=== PATIENT | female | born 1995 | race Caucasian/White ===

== ENCOUNTER 2018-05-02 06:00 | Inpatient (IN) | payer BC ==
--- NOTE | 2018-05-01 16:40 | P.HPOB ---
History of Present Illness H&P Date: 05/01/18 Chief Complaint: Induction of labor This is a 23-year-old female 2 para 1 with an estimated date of confinement of 05/09/2018, estimated gestational age of 39-0/7 weeks, who presents to labor and delivery for induction of labor. She admits to good movement and has been feeling irregular contractions. She also complains of pelvic pressure and back pain. Her has been essentially uncomplicated. labs: GC/chlamydia-negative Rubella-immune Toxoplasma-negative RPR-nonreactive Hepatitis B surface antigen-negative Random glucose-96 Blood type-A+ Antibody screen-negative Hemoglobin-15.1 One hour Glucola-101 Group B streptococcus-negative Obstetrical history: . One vaginal delivery. Gynecologic history: No history of sexual transmitted diseases. Social history: She is . 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 [employer] Review of Systems Constitutional: Denies chills, Denies fever Eyes: denies blurred vision, denies pain Cardiovascular: Denies chest pain, Denies shortness of breath Gastrointestinal: Reports abdominal pain (Irregular contractions) Genitourinary: Reports pelvic pain, Reports Musculoskeletal: Reports low back pain Integumentary: Denies pruritus, Denies rash Neurological: Denies numbness, Denies weakness Psychiatric: Denies anxiety, Denies depression Past Medical History Additional Past Medical History / Comment(s): Interstitial cystitis History of Any Multi-Drug Resistant Organisms: None Reported Past Surgical History: Orthopedic Surgery Past Psychological History: No Psychological Hx Reported Smoking Status: Never smoker Past Alcohol Use History: None Reported Past Drug Use History: None Reported - Past Family History Father Family Medical History: No Reported History Medications and Allergies Home Medications Medication Instructions Recorded Confirmed Type 78/Iron/Folate 1/Dha 1 cap PO DAILY 07/20/14 09/23/14 History [Prenate Dha Softgel] Allergies Allergy/AdvReac Type Severity Reaction Status Date / Time No Known Allergies Allergy Verified 09/23/14 22:39 Exam Osteopathic Statement: *. No significant issues noted on an osteopathic structural exam other than those noted in the History and Physical/Consult. HEENT: Within normal limits Heart: Regular rate and rhythm Lungs: Clear to auscultation bilaterally Abdomen: Soft, nontender Pelvic exam: Cervix one centimeters/60%/-3 heart tones: 170s by Doppler Extremities: Negative Homans Assessment and Plan (1) 39 weeks gestation of Status: Acute Code(s): Z3A.39 - 39 WEEKS GESTATION OF SNOMED Code( s): 63702225 Plan: Proceed with oxytocin induction of labor. Expectant management. Epidural anesthesia if desired.
[2018-05-02] MEDS ORDERED: CARBOPROST TROMETHAMINE 250 MCG/ML 1 ML AMP IM PRN (06:37)
[2018-05-02] MEDS ORDERED: OXYTOCIN 20 UNITS/1000 ML NS 1,000 ML IV SCH ×2 (06:37→15:45)
[2018-05-02] MEDS ORDERED: OXYTOCIN 10 UNIT/ML 1 ML VIAL IM PRN (06:37)
[2018-05-02] MEDS ORDERED: TERBUTALINE 1 MG/ML VIAL SQ PRN (06:37)
[2018-05-02] MEDS ORDERED: LIDOCAINE 1% 20 ML VIAL (10MG/ML) FOR IV START INTRADERMA PRN (06:37)
[2018-05-02] MEDS ORDERED: METHYLERGONOVINE 0.2 MG/ML 1 ML AMP IM PRN (06:37)
[2018-05-02] MEDS ORDERED: LIDOCAINE 0.5% (PF) 5 MG/ML (50 ML SDV) SQ PRN (06:37)
[2018-05-02 06:51] VITALS: BMI 34.2
[2018-05-02] MEDS: LACTATED RINGERS 1,000 ML IV SCH ×2 (06:59→20:36)
[2018-05-02 07:30] LABS: Basophils % (A) 0 %; Eosinophils # (A) 0.1 k/uL (0-0.7); Eosinophils % (A) 1 %; HCT 36.6 % (34.0-46.0); HGB 12.3 gm/dL (11.4-16.0); Lymphocytes # (A) 1.7 k/uL (1.0-4.8); Lymphocytes % (A) 16 %; MCH 31.1 pg (25.0-35.0); MCHC 33.5 g/dL (31.0-37.0); MCV 92.9 fL (80.0-100.0); Mean Platelet Volume 6.9; Monocytes # (A) 0.5 k/uL (0-1.0); Monocytes % (A) 5 %; Neutrophils # (A) 7.9 k/uL (1.3-7.7); Neutrophils % (A) 76 %; Platelet Count 253 k/uL (150-450); RBC 3.94 m/uL (3.80-5.40); WBC 10.3 k/uL (3.8-10.6)
[2018-05-02] MEDS ORDERED: BUTORPHANOL 1 MG/ML 1 ML VIAL IV PRN (10:25)
[2018-05-02] MEDS ORDERED: SODIUM CHLORIDE 0.9% 100 ML BAG ONE (12:26)
[2018-05-02] MEDS ORDERED: fentaNYL (PF) 50 MCG/ML 5 ML AMP ONE (12:26)
[2018-05-02] MEDS ORDERED: ROPIVACAINE 5MG/ML 20ML VIAL ONE (12:26)
[2018-05-02] MEDS ORDERED: SIMETHICONE 80 MG CHEWABLE PO PRN (15:45)
[2018-05-02] MEDS ORDERED: LANOLIN CREAM 5 GM TUBE TOPICAL PRN (15:45)
[2018-05-02] MEDS ORDERED: diphenhydrAMINE 50 MG CAP PO PRN (15:45)
[2018-05-02] MEDS ORDERED: ZOLPIDEM 5 MG TAB PO PRN (15:45)
[2018-05-02] MEDS ORDERED: ACETAMINOPHEN TAB 325 MG TAB PO PRN (15:45)
[2018-05-02] MEDS ORDERED: diphenhydrAMINE 25 MG CAP PO PRN (15:45)
[2018-05-02] MEDS ORDERED: HYDROCORTISONE 2.5% RECTAL CREAM 30 GM TUBE RECTAL PRN (15:45)
[2018-05-02] MEDS ORDERED: diphenhydrAMINE 50 MG/ML 1 ML VIAL IVP PRN ×2 (15:45)
[2018-05-02] MEDS ORDERED: BENZOCAINE/MENTHOL SPRAY 1 GM/SPRAY AEROSOL TOPICAL PRN (15:45)
[2018-05-02] MEDS ORDERED: WITCH HAZEL 1 EACH MED..PAD TOPICAL PRN (15:45)
[2018-05-02] MEDS: IBUPROFEN 600 MG TAB PO PRN ×2 (16:22→23:38)
--- NOTE | 2018-05-02 17:12 | P.PROBDLV ---
Vaginal Delivery Note - . Vaginal Delivery Note: The patient progressed to complete dilation after oxytocin induction of labor and artificial rupture of membranes with clear fluid noted. She did receive epidural anesthesia. Once reaching complete, she began pushing. Infant's head came to a crown. With one further push, the infant's head delivered across the perineum followed by the anterior shoulder. Nose and mouth were bulb suctioned. With one further push the remainder the was easily delivered reducing nuchal cord times one around the body with delivery. Infant was placed on mother's abdomen. Cord was clamped and cut and was taken to warmer for evaluation. A viable male infant was noted with scores of 9 at 1 minute and 9 at 5 minutes and infant weight of 7 lbs. 5 oz. Her placenta delivered shortly thereafter, intact, with a three-vessel cord. Uterus contracted fairly well after oxytocin was given and uterine massage was carried out. A gloved hand was also placed within the uterus and no further tissue was obtained. Her bladder was also drained which did help the uterus contract. Estimated blood loss is approximately 300 mL's. Both mother and are in stable condition.
[2018-05-02] MEDS: SENNOSIDES-DOCUSATE SODIUM 1 EACH TAB PO SCH (20:36)
[2018-05-03] MEDS: IBUPROFEN 600 MG TAB PO PRN ×2 (08:06→11:47)
[2018-05-03] MEDS: SENNOSIDES-DOCUSATE SODIUM 1 EACH TAB PO SCH (08:07)
[2018-05-03 08:40] LABS: Basophils % (A) 0 %; Eosinophils # (A) 0.1 k/uL (0-0.7); Eosinophils % (A) 0 %; HCT 25.7 % (34.0-46.0); Lymphocytes # (A) 1.6 k/uL (1.0-4.8); Lymphocytes % (A) 11 %; MCH 32.3 pg (25.0-35.0); MCHC 34.4 g/dL (31.0-37.0); MCV 93.7 fL (80.0-100.0); Mean Platelet Volume 6.8; Monocytes # (A) 0.8 k/uL (0-1.0); Monocytes % (A) 5 %; Neutrophils # (A) 12.7 k/uL (1.3-7.7); Neutrophils % (A) 83 %; Platelet Count 237 k/uL (150-450); RBC 2.75 m/uL (3.80-5.40); RDW 14.3 % (11.5-15.5); WBC 15.4 k/uL (3.8-10.6)
[2018-05-03 08:42] LABS: HGB 8.9 gm/dL (11.4-16.0)
--- NOTE | 2018-05-03 09:38 | P.DS ---
Providers Date of admission: 05/02/18 06:17 Expected date of discharge: 05/03/18 Attending physician: Katiana Cowart Primary care physician: Stated None - Discharge Diagnosis(es) (1) 39 weeks gestation of Current Visit: No Status: Acute Hospital Course: This is a 23-year-old female 2 para 1 at 39-0/7 weeks who presented for induction of labor. She underwent oxytocin induction of labor and delivered vaginally a viable male on 05/02/2018 with scores of 9 at 1 minute and 9 at 5 minutes and infant weight of 7 lbs. 5 oz. Her course has been uncomplicated. She did pass a few clots shortly after delivery but this has slowed today. She was also dizzy a couple times after delivery but this has resolved this morning also. She would like to go home. Her pain is well- controlled with ibuprofen and Tylenol. She is breast-feeding. Vital signs are stable. Abdomen is soft with fundus firm and nontender. Extremities show negative Homans. Impression is status post vaginal delivery day #1. Plan is to discharge home today. Routine instructions are given. She will be given a prescription for ibuprofen. She states she has a breast pump at home. She is instructed to follow-up in the office in 6 weeks for a check. She is instructed to call the office if she has any further questions or concerns prior to her appointment time. Procedures: Oxytocin induction of labor Spontaneous vaginal delivery of a viable male infant on 05/02/2018 Patient Condition at Discharge: Stable Plan - Discharge Summary New Discharge Prescriptions: New Ibuprofen [Motrin] 600 mg PO Q6HR PRN #60 tab PRN Reason: Mild Pain Or Fever >= 100.5 No Action 78/Iron/Folate 1/Dha [Prenate Dha Softgel] 1 cap PO DAILY Discharge Medication List 78/Iron/Folate 1/Dha [Prenate Dha Softgel] 1 cap PO DAILY 07/20/14 [ History] Ibuprofen [Motrin] 600 mg PO Q6HR PRN #60 tab 05/03/18 [Rx] Follow up Appointment(s)/Referral(s): Katiana Cowart DO [Doctor of Osteopathic Medicine] - 6 Weeks Activity/Diet/Wound Care/Special Instructions: Instructions 1. Do not begin any exercise program for 3 weeks. 2. Do not resume sexual relations for 3 weeks or longer if uncomfortable. 3. You may take tub baths or showers at any time. 4. You may use tampons if desired after 3 weeks. 5. Keep the area of episiotomy (stitches) clean and dry. 6. If you are not nursing, wear a good fitting, supportive bra during the day and limit fluid intake for at least 1 week to prevent breast engorgement. 7. Call the office, [phone], within the next week to make appointment for your 6 week checkup if it has not already been made. 8. Report any of the following occurrences to the doctor promptly: a. Heavy, excessive bleeding b. Chills, fever c. Burning or frequency of urination d. Pain or redness and breasts if nursing e. Increasing pain or swelling in episiotomy (stitches). In addition to the above instructions, the following additional should be followed: 1. No heavy lifting or straining (exercising) until after 6 week checkup. 2. Keep abdominal incision clean and dry: You may wear a dressing if more comfortable. 3. Make office appointment for 10 days after going home or as instructed by her doctor. Discharge Disposition: HOME SELF-CARE
[2018-05-03] MEDS ORDERED: PRENATAL VIT-IRON-FOLIC ACID 1 EACH CAP PO SCH (12:00)
[2018-05-03 18:48] VITALS: BP 120/64; PULSE 89; RESP 16; TEMP 98.3
== END 2018-05-03 18:30 | disposition home or self-care (01) | DRG 807 ==
LOC: 4FBP 06:17
PROVIDERS: ADMIT Obstetrics & Gynecology; ATTEND Obstetrics & Gynecology
PROC: 10E0XZZ Delivery of Products of Conception, External Approach (ICD-10-PCS; principal; 2018-05-02)
PROC: 3E033VJ Introduction of Other Hormone into Peripheral Vein, Percutaneous Approach (ICD-10-PCS; principal; 2018-05-02)
PROC: 10907ZC Drainage of Amniotic Fluid, Therapeutic from Products of Conception, Via Natural or Artificial Opening (ICD-10-PCS; principal; 2018-05-02)
PROC: 3E0R3NZ Introduction of Analgesics, Hypnotics, Sedatives into Spinal Canal, Percutaneous Approach (ICD-10-PCS; principal; 2018-05-02)
PROC: 00HU33Z Insertion of Infusion Device into Spinal Canal, Percutaneous Approach (ICD-10-PCS; principal; 2018-05-02)
DX: O69.81X0 Labor and delivery complicated by cord around neck, without compression, not applicable or unspecified (principal); Z37.0 Single live birth; Z3A.39 39 weeks gestation of pregnancy
CPT/HCPCS: 85025; 86850; 86900; 86901

== ENCOUNTER 2020-10-17 06:19 | Day surgery (SDC) | payer BC ==
[2020-10-15 15:41] VITALS: BMI 32.2
--- NOTE | 2020-10-16 19:34 | P.HPOB ---
History of Present Illness H&P Date: 10/16/20 Chief Complaint: Family planning This is a 25 y.o. female 2, para 2, who presents for laparoscopic bilateral tubal ligation via fulgaration along with removal of Nexplanon implant. She complains of mood swings on the Nexplanon and wants permanent sterilization. OB Hx: . History of 2 vaginal deliveries. Ehs Engineer Hx: No history of STDs. 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 Review of Systems Constitutional: Denies chills, Denies fever Eyes: denies blurred vision, denies pain Ears, nose, mouth and throat: Denies headache, Denies sore throat Cardiovascular: Denies chest pain, Denies shortness of breath Respiratory: Denies cough Gastrointestinal: Denies abdominal pain, Denies diarrhea, Denies nausea, Denies vomiting Genitourinary: Denies dysuria, Denies hematuria Menstruation: Reports menses variable Musculoskeletal: Denies myalgias Integumentary: Denies pruritus, Denies rash Neurological: Denies numbness, Denies weakness Psychiatric: Reports anxiety, Reports depression, Reports irritability, Reports mood swings Past Medical History Additional Past Medical History / Comment(s): Interstitial cystitis History of Any Multi-Drug Resistant Organisms: None Reported Past Surgical History: Bladder Surgery, Orthopedic Surgery Additional Past Surgical History / Comment(s): SX TO both ankles Past Anesthesia/Blood Transfusion Reactions: No Reported Reaction Past Psychological History: No Psychological Hx Reported Smoking Status: Former smoker Past Alcohol Use History: Occasional Past Drug Use History: None Reported - Past Family History Father Family Medical History: No Reported History Medications and Allergies Home Medications Medication Instructions Recorded Confirmed Type FLUoxetine HCL [PROzac] 20 mg PO DAILY 10/16/20 10/17/20 History Allergies Allergy/AdvReac Type Severity Reaction Status Date / Time No Known Allergies Allergy Verified 10/17/20 07:13 Exam Osteopathic Statement: *. No significant issues noted on an osteopathic structural exam other than those noted in the History and Physical/Consult. HEENT: within normal limits Heart: regular rate and rhythm Lungs: clear to auscultation bilaterally Abdomen: soft, non-tender, anteverted, no adnexal masses or tenderness Extremities: neg. John's Assessment and Plan (1) Family planning Current Visit: No Status: Acute Code(s): Z30.09 - ENCOUNTER FOR OTH GENERAL CNSL AND ADVICE ON CONTRACEPTION SNOMED Code(s): 225397265 Plan: Proceed with laparoscopic bilateral tubal ligation via fulgaration and Nexplanon removal. I have discussed the risks, benefits, and alternative therapies for the above- mentioned procedure and for both sedation/anesthesia as well as necessary blood products administration, if indicated, as they pertain to this patient. The patient has indicated her understanding and acceptance of the risks and procedures discussed.
[~2020-10-17 06:19] MED LIST: DEXAMETHASONE SOD PHOSPHATE 4 MG/ML 1 ML VIAL IV ONE; HYDROmorphone 0.5 MG/0.5 ML SYRINGE IVP PRN; LACTATED RINGERS 1,000 ML IV SCH; ONDANSETRON 4 MG/2 ML VIAL IVP ONE; Pre Op ABX Message 1 EACH MISC MISCELLANE ONE
[2020-10-17] MEDS ORDERED: ONDANSETRON 4 MG/2 ML VIAL ONE ×2 (06:55→10:34)
[2020-10-17] MEDS ORDERED: LIDOCAINE 1% (10MG/ML) FOR IV START INTRADERMA ONE (07:01)
[2020-10-17] MEDS ORDERED: ONDANSETRON 4 MG/2 ML VIAL IVP ONE ×2 (07:01→10:38)
[2020-10-17] MEDS ORDERED: DEXAMETHASONE SOD PHOSPHATE 4 MG/ML 1 ML VIAL IV ONE (07:02)
[2020-10-17] MEDS ORDERED: SUCCINYLCHOLINE CHLORIDE 100 MG/5 ML SYR IV ONE (07:27)
[2020-10-17] MEDS ORDERED: KETOROLAC 15 MG/ML 1 ML VIAL ONE (07:27)
[2020-10-17] MEDS ORDERED: PROPOFOL 10 MG/ML 20 ML VIAL IV ONE (07:27)
[2020-10-17] MEDS ORDERED: ROCURONIUM 10 MG/ML (5 ML VIAL) IV ONE (07:27)
[2020-10-17] MEDS ORDERED: GLYCOPYRROLATE 0.2 MG/ML 2 ML VIAL ONE (07:27)
[2020-10-17] MEDS ORDERED: fentaNYL (PF) 50 MCG/ML 2 ML AMP ONE (07:27)
[2020-10-17] MEDS ORDERED: MIDAZOLAM 2 MG/2 ML VIAL ONE (07:27)
[2020-10-17] MEDS ORDERED: HYDROmorphone (PF) 1 MG/ML ONE (07:27)
[2020-10-17] MEDS ORDERED: LIDOCAINE 1% INJ 10MG/ML (20 ML MDV) ONE (07:27)
[2020-10-17] MEDS ORDERED: NEOSTIGMINE 1 MG/ML 10 ML VIAL ONE (07:27)
[2020-10-17] MEDS ORDERED: BUPIVACAINE (PF) 0.25% 30 ML VIAL SQ ONE ×2 (07:58)
--- NOTE | 2020-10-17 08:19 | P.OP ---
Date of Procedure: 10/17/20 Preoperative Diagnosis: Family planning Postoperative Diagnosis: Same plus left ovarian simple cyst Procedure(s) Performed: Laparoscopic bilateral tubal ligation via fulguration Removal of Nexplanon implant Drainage of left ovarian cyst Anesthesia: SOHA Surgeon: Katiana Cowart Estimated Blood Loss (ml): 10 Pathology: none sent Condition: stable Disposition: same day Indications for Procedure: This is a 25 y.o. female 2, para 2, who presents for laparoscopic bilateral tubal ligation via fulgaration along with removal of Nexplanon implant. She complains of mood swings on the Nexplanon and wants permanent sterilization. Operative Findings: Uterus is small, mid position, sounded to 8-1/2 cm. On exam no adnexal masses are palpated. Upon hysteroscopy, both tubes appeared normal. Uterus appeared normal. There is a large simple-appearing left ovarian cyst approximately 4-5 cm. Right ovary appears normal. Description of Procedure: The patient is taken to the operating room where she is placed in the dorsal lit hotomy position. She is prepped and draped in the normal sterile fashion. Examination is performed under anesthesia. Uterus is found to be in a anteverted position. No adnexal masses were palpated. Next a bivalve speculum was placed in the patient's vagina. A single-tooth tenaculum was used to grasp the anterior lip of the cervix. The uterus was sounded to 8.5 cm. The kroner uterine manipulator was then inserted through the cervix and the balloon was inflated. The single-tooth tenaculum is removed speculum was removed gloves were changed and attention was turned to the abdomen. A small stab incision was made with a scalpel in the infraumbilical fold. A towel clip was placed above the umbilicus for retraction. A 5 mm disposable bladeless trocar was then inserted into the peritoneal cavity under direct visualization. Once inside, pneumoperitoneum was achieved with CO2 gas. The insert was removed and the camera was placed. Intraperitoneal placement was confirmed. No bleeding was noted. Next the patient was placed in Trendelenburg position. A small stab incision was made suprapubically and a 5 mm disposable bladeless trocar was inserted into the peritoneal cavity under direct visualization. Once inside pelvic contents were inspected. Next a bipolar Kleppinger instrument was placed through the inferior trocar and the midportion of each tube was brought away from other structures and completely fulgurated on approximate 2-3 cm segment of each tube. Excellent hemostasis was noted. Next an aspirating needle is placed through the inferior trocar and a stab incision is made into the left ovary. Approximately 17 mL of straw-colored fluid was removed from the ovarian cyst. The cyst did resolve. No active bleeding was noted. Pictures were taken. Pneumoperitoneum was released after the inferior trocar was removed under direct visualization. The upper trocar was then removed. The skin incisions were then closed with 4-0 Vicryl suture in a subcuticular fashion. Incisions were then injected with quarter percent Marcaine. Approximately 3 mL were used. Next the kroner uterine manipulator was removed. Minimal bleeding was noted. Attention is then turned to the left arm. The Nexplanon implant is identified in the left arm. Injection of approximately 1.5 mL of half percent Marcaine was injected underneath the implant. A 15 blade is used to make a small stab incision near the implant. The implant is then brought through the incision and grasped with a hemostat. The implant is completely removed. The incision site is then covered with a Band-Aid after cleaning the Betadine off of her arm. All sponge and needle counts are correct. The patient is then taken to recovery room in stable condition.
[2020-10-17 08:35] VITALS: RESP 16; TEMP 97
[2020-10-17] MEDS ORDERED: HYDROmorphone 0.5 MG/0.5 ML SYRINGE IVP ONE (08:43)
[2020-10-17] MEDS ORDERED: HYDROcodone/APAP 5-325MG 1 EACH TAB ONE (09:39)
[2020-10-17] MEDS ORDERED: HYDROcodone/APAP 5-325MG 1 EACH TAB PO ONE (09:40)
[2020-10-17 10:03] VITALS: BP 96/65
[2020-10-17 10:32] VITALS: PULSE 82
== END 2020-10-17 11:26 | disposition home or self-care (01) ==
LOC: OR 06:19
PROVIDERS: ATTEND Obstetrics & Gynecology
DX: Z30.2 Encounter for sterilization (principal); N83.292 Other ovarian cyst, left side; Z87.891 Personal history of nicotine dependence; Z45.89 Encounter for adjustment and management of other implanted devices; F32.9 Major depressive disorder, single episode, unspecified; Z98.890 Other specified postprocedural states; Z79.899 Other long term (current) drug therapy
CPT/HCPCS: 58670; 11982; 49322; 81025; J2250; J1100; J2710; J2405; J2001; J3010; J1170 ×2; J1885; J0330; J2704